=== PATIENT | female | born 1975 ===

== ENCOUNTER 2022-10-21 09:26 | Inpatient (IN) | payer OTHER ==
[~2022-10-21] VITALS: Ht 162.6 cm; Wt 113.4 kg
[2022-10-22] MEDS ORDERED: TOPROL XL100 M1 PO (10:52)
[2022-10-22] MEDS ORDERED: BENADRYL25 MG PO (10:53)
[2022-10-22] MEDS ORDERED: [UNRECOGNIZED DRUG - OTHER] PO (10:53)
[2022-10-24] MEDS ORDERED: NEXIUM 24HR20 M1 (10:27)
== END 2022-10-25 17:28 | disposition home or self-care (01) | DRG 743 ==
LOC: OB/GYN 10-24 07:30 → O/R 10-24 07:30 → SURG 10-24 07:45 → OB/GYN 10-24 16:22
PROVIDERS: ADMIT Obstetrics & Gynecology; ATTEND Obstetrics & Gynecology
PROC: 0UT70ZZ Resection of Bilateral Fallopian Tubes, Open Approach (ICD-10-PCS; 2022-10-24)
PROC: 0UT90ZZ Resection of Uterus, Open Approach (ICD-10-PCS; principal; 2022-10-24 09:15)
DX: D25.1 Intramural leiomyoma of uterus (principal); D25.2 Subserosal leiomyoma of uterus; Z20.822 Contact with and (suspected) exposure to COVID-19; N80.03 Adenomyosis of the uterus